=== PATIENT | male | born 1965 | race Caucasian/White ===

== ENCOUNTER 2021-11-10 09:03 | Day surgery (SDC) | payer MEDICARE, OTHER ==
[~2021-11-10] VITALS: Ht 172.7 cm; Wt 84.4 kg
[2021-11-10] MEDS ORDERED: ALEVE 220MG220 MG PO (09:38)
[2021-11-10] MEDS ORDERED: PEPCID AC 10MG10 MG PO (09:39)
[2021-11-10] MEDS ORDERED: LIPITOR20 MG PO (09:42)
[2021-11-10] MEDS ORDERED: MAG-OX 400400 MG/TAB PO (09:43)
[2021-11-10] MEDS ORDERED: DEPAKOTE ER 50500 MG PO (09:43)
[2021-11-10] MEDS ORDERED: ANTIVERT 12.512.5 MG PO (09:44)
[2021-11-10] MEDS ORDERED: PAXIL40 MG PO (09:45)
--- NOTE | 2021-11-10 10:06 | NUR ---
Initial visit; Patient and his thanked for prayer preceding his surgical procedure. wished Ari well.
[2021-11-10 10:23] VITALS: BP 127/74; PULSE 82; TEMP 97.5
[2021-11-10] MEDS ORDERED: NORCO 325 MG-51 TAB PO (10:34)
[2021-11-10] MEDS ORDERED: MOTRIN 600600 MG/TAB PO (10:34)
[2021-11-10 13:30] VITALS: BP 120/76; PULSE 65; TEMP 97.7
--- NOTE | 2021-11-10 13:30 | NUR ---
PT TO [facility] PER CART FROM PACU. RECEIVED REPORT FROM DIPESH MORA. VS OBTAINED. PT ON 2L PER NC. PT RESTING COMFORTABLY AT THIS TIME. CALL LIGHT WITHIN REACH. WILL CONTINUE TO MONITOR PT.
[2021-11-10 13:45] VITALS: BP 120/73; PULSE 62
--- NOTE | 2021-11-10 13:45 | NUR ---
PT CONTINUES TO REST COMFORTABLY. 2L PER NC AT THIS TIME. PT DENIES ANY NEEDS AT THIS TIME. WILL CONTINUE TO MONITOR.
[2021-11-10 14:00] VITALS: BP 110/73; PULSE 74
--- NOTE | 2021-11-10 14:00 | NUR ---
PT TOLERATING APPLE JUICE. PT DENIES ANY NEEDS AT THIS TIME. WILL CONTINUE TO MONITOR. PT ON 1L PER NC.
[2021-11-10 14:15] VITALS: BP 117/71; PULSE 60
--- NOTE | 2021-11-10 14:15 | NUR ---
PT TOLERATING JUICE AND MUFFIN. DENIES ANY NEEDS AT THIS TIME. AT BEDSIDE. PT DECREASING O2 NEEDS. WILL CONTINUE TO MONITOR PT.
[2021-11-10 14:30] VITALS: BP 107/72; PULSE 78
--- NOTE | 2021-11-10 14:30 | NUR ---
PT CONTINUES TO DENY ANY NEEDS AT THIS TIME. WILL CONTINUE TO MONITOR. PT STATES HE IS READY FOR DISCHARGE.
--- NOTE | 2021-11-10 15:25 | NUR ---
IV DC'D. PT TOLERATED WELL.
--- NOTE | 2021-11-10 15:35 | NUR ---
DISCHARGE EDUCATION COMPLETED WITH PT. VERBALIZED UNDERSTANDING OF HOME AND FOLLOW UP CARE. ALL QUESTIONS ANSWERED. DISCHARGE PAPERWORK GIVEN TO PT.
--- NOTE | 2021-11-10 15:45 | NUR ---
PT OFF UNIT PER WHEELCHAIR. DISCHARGE TO HOME WITH PER PERSONAL VEHICLE.
== END 2021-11-10 15:45 | disposition home or self-care (01) ==
LOC: SDCO 09:03
DX: K40.90 Unilateral inguinal hernia, without obstruction or gangrene, not specified as recurrent (principal); D17.6 Benign lipomatous neoplasm of spermatic cord; F17.210 Nicotine dependence, cigarettes, uncomplicated
CPT/HCPCS: C1781; J0690; J1100; J1170; J1885; J2405; J2704; J3010; J7120

== ENCOUNTER 2023-12-15 09:51 | Day surgery (SDC) | payer MEDICARE, OTHER ==
[~2023-12-15] VITALS: Ht 172.7 cm; Wt 74.3 kg
[~2023-12-15 09:51] MED LIST: ALEVE 220MG220 MG PO; ANTIVERT 12.512.5 MG PO; LR 1,000 ML IV SCH; MAG-OX 400400 MG/TAB PO; MINIPRESS 5M5 MG/CAP PO; MOTRIN 600600 MG/TAB PO; NORCO 325 MG-51 TAB PO; PAXIL40 MG PO; REMERON30 MG PO; SEROQUEL400 MG PO
[2023-12-15] MEDS ORDERED: TYLENOL 325MG325 MG PO (10:17)
[2023-12-15] MEDS ORDERED: FLEXERIL 1010 MG/TAB PO (10:18)
[2023-12-15] MEDS ORDERED: VOLTAREN GEL 1%1 TU TP (10:18)
[2023-12-15] MEDS ORDERED: PEPCID AC 10MG10 MG PO (10:19)
[2023-12-15] MEDS ORDERED: DEPAKOTE ER 25250 MG PO (10:19)
[2023-12-15] MEDS ORDERED: EPA FISH OIL1 SGL PO (10:21)
[2023-12-15] MEDS ORDERED: FERROUS SU325 MG/TAB PO (10:26)
[2023-12-15] MEDS ORDERED: TOPAMAX50 MG PO (10:26)
[2023-12-15] MEDS ORDERED: COLACE 100100 MG/CAP PO (10:26)
[2023-12-15 10:43] VITALS: BP 112/76; PULSE 76; TEMP 97.1
[2023-12-15] MEDS ORDERED: fentaNYL 50 MCG/ML 2 ML VIAL ONE (11:48)
[2023-12-15] MEDS ORDERED: NS 10 ML IV ONE (11:49)
[2023-12-15] MEDS ORDERED: Ondansetron 4 MG/2 ML VIAL ONE (11:49)
[2023-12-15] MEDS ORDERED: dexAMETHasone 10 MG/ML VIAL ONE (11:49)
[2023-12-15] MEDS ORDERED: hydrALAZINE 20 MG/ML 1 ML VIAL IV PRN (12:15)
[2023-12-15] MEDS ORDERED: fentaNYL 50 MCG/ML 1 ML SYRINGE/VIAL [PACU/SDC ONLY] IV PRN (12:15)
[2023-12-15] MEDS ORDERED: Meperidine 50 MG/ML 1 ML VIAL IV PRN (12:15)
[2023-12-15] MEDS ORDERED: HYDROmorphone 1 MG/1 ML SYRINGE [PACU/SDC ONLY] IV PRN ×2 (12:15)
[2023-12-15] MEDS ORDERED: droPERidol 2.5 MG/ML 2 ML VIAL IV PRN (12:15)
[2023-12-15] MEDS ORDERED: Ondansetron 4 MG/2 ML VIAL IV PRN ×2 (12:15→14:30)
[2023-12-15] MEDS ORDERED: Topical Skin Adhesive 1 EACH (1 ML) TOP ONE (13:20)
[2023-12-15] MEDS ORDERED: Ketorolac 30 MG/ML VIAL ONE (13:55)
[2023-12-15] MEDS ORDERED: NORCO 325 MG-51 TAB PO (14:15)
[2023-12-15] MEDS ORDERED: Acetaminophen 325 MG TAB PO PRN (14:30)
[2023-12-15] MEDS ORDERED: Morphine 4 MG/ML VIAL IV PRN (14:30)
[2023-12-15 14:35] VITALS: BP 104/79; PULSE 72; TEMP 97.2
--- NOTE | 2023-12-15 14:35 | NUR ---
The patient arrived back to [facility] from the recovery room at this time. The patient appears alert and oriented and denies any pain or nausea. Post operative vital signs were started at this time. The patient agrees to try some applesauce and apple juice. The patient's incision is covered with surgical glue and appears without redness or edema. The patient's is at his bedside at this time. Call light is within reach. The patient denies any further needs at this time.
[2023-12-15 14:50] VITALS: BP 118/73; PULSE 87
--- NOTE | 2023-12-15 14:50 | NUR ---
The patient appeared to tolerate the food and drink well. Vital signs appear to be stable. The patient is standing at the side of his bed getting his underwear and pants on at this time.
[2023-12-15 15:05] VITALS: BP 121/79; PULSE 66
--- NOTE | 2023-12-15 15:10 | NUR ---
Discharge instructions were reviewed with the patient and his at this time. They both verbalized understanding and questions were answered at this time. The patient's IV to his left hand was removed and a pressure dressing was applied to the site. The nurse instructed the patient to finish getting dressed and notify the staff when he is ready to be escorted out.
--- NOTE | 2023-12-15 15:25 | NUR ---
The patient was escorted out via wheelchair to a private vehicle by DIPESH Lang. The patient's belongings and discharge paperwork were sent with him. The patient's , Kisha, is present to drive him home.
[2023-12-15 16:42] VITALS: BP 104/79; PULSE 70; TEMP 97.1
== END 2023-12-15 15:25 | disposition home or self-care (01) ==
LOC: SDCO 09:51
DX: K40.91 Unilateral inguinal hernia, without obstruction or gangrene, recurrent (principal); D17.6 Benign lipomatous neoplasm of spermatic cord
CPT/HCPCS: C1781; J0690; J1100; J1885; J2405; J2704; J3010; J7120